=== PATIENT | male | born 1950 | race Caucasian/White ===

== ENCOUNTER 2016-11-18 14:03 | Inpatient (IN) | payer MEDICARE, BC ==
[~2016-11-18] VITALS: Ht 172.7 cm; Wt 84.0 kg
--- NOTE | 2016-11-18 14:07 | ERA ---
ER Documentation Chief Complaint Date/Time DATE: 11/18/16 TIME: 14:07 Chief Complaint Chest pain HPI The patient is a 66-year-old male, presenting to the ER because of acute left- sided chest pain after he had an angiogram of the right lower extremity in the doctor's office Dr. Trinh. The chest pain is 4/10, somewhat relief with aspirin 150 mg and 2 nitroglycerin sublingual administered by the doctors in the office. He was treated with additional 2 nitroglycerin spray. He denies similar symptoms previously, denies chest pain with exertion/vomiting/ diaphoresis dyspnea, abdominal pain, vomiting, dysuria, diarrhea. He did have dialysis today, Accu-Chek was 280 in the doctor's office. Past medical history: Chronic kidney disease, hemodialysis Friday and Friday, diabetes mellitus, hypertension, CAD Past surgical history: CABG 2011, right upper extremity AV fistula ROS All systems reviewed and are negative except as per history of present illness. Medications Home Meds Reported Medications Rosuvastatin Calcium* (Crestor*) 40 Mg Tablet, 40 MG PO QHS, #30 TAB 11/18/16 Isosorbide Mononitrate* (Isosorbide Mononitrate*) 60 Mg Tab.er.24h, 60 MG PO DAILY, TAB 11/18/16 Pregabalin* (Lyrica*) 25 Mg Capsule, 25 MG PO DAILY, CAP 11/18/16 Valsartan* (Diovan*) 160 Mg Tablet, 160 MG PO DAILY, TAB 11/18/16 Insulin Aspart* (Novolog Insulin Pen*) 100 Unit/Ml Soln, 0 SC .SLIDING SCALE AC , EA 11/18/16 Insulin Glargine,Hum.rec.anlog (Toujeo Solostar) 300 Unit/1 Ml Insuln.pen, 85 UNIT SQ QPM 11/18/16 Furosemide* (Furosemide*) 40 Mg Tablet, 40 MG PO BID, TAB 11/18/16 Mometasone Furoate* (Asmanex*) 110 Mcg/Inh - 7 Act Aer.pow.ba, 1 PUFF INHALATION QHS, #1 INHALER 11/18/16 Ticagrelor* (Brilinta*) 90 Mg Tablet, 90 MG PO Q12, TAB 11/18/16 Allergies Allergies: Coded Allergies: No Known Allergy (Unverified , 11/18/16) Physical Exam Vitals Vital Signs Date Time Temp Pulse Resp B/P Pulse Ox O2 Delivery O2 Flow Rate FiO2 11/18/16 16:09 98.0 86 18 139/59 98 Nasal Cannula 2.0 11/18/16 14:31 Nasal Cannula 2 11/18/16 14:11 97.8 86 20 129/47 98 Physical Exam Const: No acute distress. Head: Atraumatic. Eyes: Normal Conjunctiva. ENT: Normal External Ears, Nose and Mouth. Neck: Full range of motion. No meningismus. Resp: Clear to auscultation bilaterally. Cardio: Regular rate and rhythm. Abd: Soft, non distended, normal bowel sounds, non tender. Skin: No petechiae or rashes. Back: No midline or flank tenderness. Ext: Chronic bilateral lower extremity edema, no calf tenderness Neur: Awake and alert. No focal deficit Psych: Normal Mood and Affect. Result Diagram: 11/18/16 1435 11/18/16 1435 Results 24 hrs Laboratory Tests Test 11/18/16 14:22 11/18/16 14:35 Bedside Glucose 265mg/dL White Blood Count 13.210^3/ul Red Blood Count 3.9110^6/ul Hemoglobin 11.9g/dl Hematocrit 36.1% Mean Corpuscular Volume 92.3fl Mean Corpuscular Hemoglobin 30.4pg Mean Corpuscular Hemoglobin Concent 33.0g/dl Red Cell Distribution Width 13.9% Platelet Count 37246^3/UL Mean Platelet Volume 10.6fl Neutrophils % 71.9% Lymphocytes % 17.0% Monocytes % 7.5% Eosinophils % 2.7% Basophils % 0.6% Nucleated Red Blood Cells % 0.0/100WBC Neutrophils # 9.510^3/ul Lymphocytes # 2.310^3/ul Monocytes # 1.010^3/ul Eosinophils # 0.410^3/ul Basophils # 0.110^3/ul Nucleated Red Blood Cells # 0.010^3/ul Sodium Level 141mmol/L Potassium Level 4.1mmol/L Chloride Level 96mmol/L Carbon Dioxide Level 29mmol/L Anion Gap 20 Blood Urea Nitrogen 43mg/dl Creatinine 9.08mg/dl Glucose Level 282mg/dl Calcium Level 9.0mg/dl Phosphorus Level 4.6mg/dl Magnesium Level 1.9mg/dl Troponin I 0.305ng/ml Procedures/[place] [id number] Radiology Main Line: [phone] DIAGNOSTIC IMAGING REPORT Patient: MIKAELA HELLER : 1950 Age: 66 Sex: M MR #: [id number] DOS: 11/18/16 1418 Ordering MD: GABBY CLARKE MD Location: E/R Room/Bed: PROCEDURE: XR Chest. CLINICAL INDICATION: Chest pain. TECHNIQUE: Single frontal view. COMPARISON: None. FINDINGS: The lungs are clear. The heart is enlarged. There are sternal wires. There is no pleural effusion. There is no pneumothorax. IMPRESSION: 1. Cardiomegaly. 2. Previous median sternotomy. 3. Otherwise unremarkable study. RPTAT: QQ .Khoa Ballard MD, MD Date Time Electronically viewed and signed by .Khoa Ballard MD, MD on 11/18/2016 15:02 .R/ CC: GABBY CLARKE MD EKG: Read by emergency physician Rate/Rhythm: Normal Sinus Rhythm 88 beats/min QRS, ST, T-waves: No ST elevation, no T inversion, Anterior Q waves Impression: Abnormal EKG MEDICAL MAKING DECISION: The patient is a 66-year-old male, presenting with acute non-STEMI. His pain is currently tolerable and did not require additional treatment at this time.Anticoagulation will be ordered by Dr. Alston The differential diagnoses considered include but are not limited to acute coronary syndrome, acute myocardial infarction, pericarditis, pulmonary embolism , aortic dissection, pneumonia, pleural effusion, pneumothorax, GERD, chest wall pain. Critical Care: Time: 35 minutes excluding all billable procedures. Treatments/Evaluations: Close monitoring and treatment of unstable vital signs, cardiorespiratory, and neurologic status, while maintaining tight balance of fluid, respiratory, and cardiac interventions. Departure Diagnosis: Primary Impression: Non-STEMI (non-ST elevated myocardial infarction) Additional Impression: Anemia Condition: Stable Comments I discussed the findings with the patient. I discussed the patient with the on- call hospitalist Dr. Alston at [facility]. Who was made aware of the lab, the treatment, the patient condition. The patient is admitted to telemetry GABBY CLARKE MD Nov 18, 2016 14:07 GABBY CLARKE MD Nov 18, 2016 14:07
[2016-11-18 14:11] VITALS: Ht 172.7 cm; Wt 84.0 kg
--- NOTE | 2016-11-18 15:02 | RADRPT ---
PROCEDURE: XR Chest. CLINICAL INDICATION: Chest pain. TECHNIQUE: Single frontal view. COMPARISON: None. FINDINGS: The lungs are clear. The heart is enlarged. There are sternal wires. There is no pleural effusion. There is no pneumothorax. IMPRESSION: 1. Cardiomegaly. 2. Previous median sternotomy. 3. Otherwise unremarkable study. RPTAT: QQ .Khoa Ballard MD, MD Date Time Electronically viewed and signed by .hKoa Ballard MD, MD on 11/18/2016 15:02 .R/
[2016-11-18 15:04] LABS: BASOPHIL # 0.1 10^3/ul (0.0-0.1); BASOPHILS % 0.6 % (0.0-2.0); EOSINOPHILS # 0.4 10^3/ul (0.0-0.5); EOSINOPHILS % 2.7 % (0.0-7.0); HEMATOCRIT 36.1 % (42.0-52.0); HEMOGLOBIN 11.9 g/dl (14.0-18.0); LYMPHOCYTES # 2.3 10^3/ul (0.8-2.9); MEAN CORPUSCULAR HEMOGLOBIN 30.4 pg (29.0-33.0); MEAN CORPUSCULAR VOLUME 92.3 fl (82.0-101.0); MEAN PLATELET VOLUME 10.6 fl (7.4-10.4); MONOCYTES % 7.5 % (0.0-11.0); NEUTROPHIL # 9.5 10^3/ul (1.6-7.5); NEUTROPHILS % 71.9 % (39.0-77.0); PLATELET COUNT 178 10^3/UL (140-415); RED BLOOD COUNT 3.91 10^6/ul (4.70-6.10); RED CELL DISTRIBUTION WIDTH 13.9 % (11.5-14.5); WHITE BLOOD COUNT 13.2 10^3/ul (4.8-10.8)
[2016-11-18 15:15] LABS: CREATININE 9.08 mg/dl (0.61-1.24); MAGNESIUM 1.9 mg/dl (1.7-2.5); PHOSPHORUS 4.6 mg/dl (2.5-4.9); POTASSIUM 4.1 mmol/L (3.5-5.1)
[2016-11-18] MEDS ORDERED: FURO40TA4 PO (15:17)
[2016-11-18] MEDS ORDERED: TICA90TA PO (15:17)
[2016-11-18] MEDS ORDERED: MOME0.132 INHALATION (15:17)
[2016-11-18] MEDS ORDERED: NOVO3I SC (15:18)
[2016-11-18] MEDS ORDERED: INSU300I SQ (15:18)
[2016-11-18] MEDS ORDERED: LYRI25 PO (15:19)
[2016-11-18] MEDS ORDERED: ISOS60TA PO (15:19)
[2016-11-18] MEDS ORDERED: VALS160T20 PO (15:19)
[2016-11-18] MEDS ORDERED: ROSU40TA35 PO (15:20)
[2016-11-18 15:35] LABS: TROPONIN-I 0.305 ng/ml (0.00-0.12)
[2016-11-18 18:23] VITALS: TEMP 98.2
[2016-11-18] MEDS ORDERED: morphine 2 MG INJ IV PRN (19:30)
[2016-11-18] MEDS ORDERED: ALBUTEROL/IPRATROPIUM (NEB) 3 ML AMP HHN PRN (19:30)
[2016-11-18] MEDS ORDERED: HEPARIN 1000 UNITS/ML 10 ML INJ IV PRN (19:30)
[2016-11-18] MEDS ORDERED: NITROGLYCERIN 2% 1 GM OINT PKT TD PRN (19:30)
[2016-11-18] MEDS: NEBIVOLOL 5 MG TAB PO SCH (19:30)
[2016-11-18] MEDS ORDERED: HEPARIN 1000 UNITS/ML 10 ML INJ IV ONE (19:30)
[2016-11-18] MEDS ORDERED: ONDANSETRON 4 MG INJ IV PRN (19:30)
[2016-11-18] MEDS ORDERED: NACL 0.9% 3 ML SYG IV SCH (19:30)
--- NOTE | 2016-11-18 19:34 | HP ---
Date/Time of Note Date/Time of Note DATE: 11/18/16 TIME: 19:28 Assessment/Plan VTE Prophylaxis VTE Prophylaxis Intervention: heparin, SCD's Lines/Catheters IV [facility]from [facility] [place] Assessment/Plan Chief Complaint/Hosp Course Patient is a 66-year-old male with a past medical history of coronary artery disease who presents for chest pain. Chest pain, non-ST elevation MN Non-ST elevation MN End-stage renal disease Elevated troponins Diabetes mellitus Electrolyte derangement, secondary to ESRD Elevated white count, very mild Anemia, likely secondary to CKD Plan -Cardiology consulted, plan for cath possibly tomorrow, n.p.o. after midnight, on heparin drip -Restart meds as appropriate -Nephrology consulted for hemodialysis -As needed medication for pain, morphine and nitro -Monitor in the ICU per emergency physician -We will restart other home meds as patient becomes more stable -Troponins still trending Problems: HPI/ROS Admit Date/Time Admit Date/Time Hx of Present Illness Patient is a 66-year-old male with past medical history of coronary artery disease and end-stage renal disease on hemodialysis who presents to [facility] for chest pain during routine angiogram procedure at a vascular surgeon's office. Patient complains of 1 day onset of left-sided chest pain and states that it is still present here in the ED but has subsided somewhat. Patient follows up with a senior information systems architect at [facility] and with the hourly shift on a regular basis and takes all his medications except for today. Patient also received dialysis this morning. Patient denies any nausea vomiting, headache or loss of vision or shortness of breath. Patient does state mild chest pain still. PMH: End-stage renal disease on hemodialysis, coronary artery disease status post CABG in 2012, diabetes mellitus, hypertension, peripheral arterial disease question PSH: CABG in 2012 Meds: Brilinta, isosorbide dinitrate, Crestor, valsartan, Lyrica, Lasix, insulin PMH/Family/Social Social History Smoking Status: Never smoker Exam/Review of Systems Vital Signs Vitals Vital Signs Date Time Temp Pulse Resp B/P Pulse Ox O2 Delivery O2 Flow Rate FiO2 11/18/16 18:23 98.2 86 18 131/53 98 Nasal Cannula 2.0 Exam Exam Physical exam General: Patient is laying in bed and answers questions appropriately Mentation: Patient is alert and oriented 4, Head: Normocephalic atraumatic Eyes: EOMI, pupils reactive to light Neck: Supple, nontender, midline Respiratory: Clear to auscultation bilaterally Cardiovascular: regular rate, no obvious murmurs Gastrointestinal: non-tender to palpation, bowel sounds heard. large Neurological: Moves all extremities spontaneously Skin: No new skin lesions Labs Result Diagram: 11/18/16 1435 11/18/16 1435 Medications Medications Current Medications Ondansetron HCl (Zofran Inj) 4 mg Q6H PRN IV NAUSEA AND/OR VOMITING; Start at 19:30; Status UNV Morphine Sulfate (morphine) 2 mg Q4H PRN IV SEVERE PAIN LEVEL 7-10; Start 11/18 at 19:30; Status UNV Pantoprazole (Protonix Iv) 40 mg DAILY@06 IV ; Start 11/19/16 at 06:00; Status UNV Miscellaneous Medication (Bystolic) 5 mg DAILY PO ; Start 11/18/16 at 19:30; Status UNV Isosorbide Dinitrate (Isordil) 20 mg TID PO ; Start 11/18/16 at 21:00; Status UNV Ticagrelor (Brilinta) 90 mg BID PO ; Start 11/18/16 at 21:00; Status UNV Atorvastatin Calcium (Lipitor) 80 mg HS PO ; Start 11/18/16 at 21:00; Status UNV Nitroglycerin (Nitroglycerin 2% Oint) 1 inch Q6 PRN TD chest pain; Start at 19:30; Status UNV Miscellaneous Information (* Miscellaneous Pharmacy Order) Discontinue current oral sulfonylur... ONCE ONCE XX ; Start 11/18/16 at 19:30; Stop 11/18/16 at 19: 31; Status UNV Diagnostic Test (Pha) (Accu-Chek) 1 XX ; Start 11/19/16 at 02:00; Status UNV Miscellaneous Information (* Miscellaneous Pharmacy Order) HYPOGLYCEMIA PROTOCOL w... ONCE ONCE XX ; Start 11/18/16 at 19:30; Stop 11/18/16 at 19:31; Status UNV Miscellaneous Information (* Miscellaneous Pharmacy Order) Discontinue all previ... ONCE ONCE XX ; Start 11/18/16 at 19:30; Stop 11/18/16 at 19:31; Status UNV Insulin Glargine (Lantus) 85 unit DAILY@20 SC ; Start 11/18/16 at 20:00; Status UNV Miscellaneous Information (* Miscellaneous Pharmacy Order) DC previous hepa... ONCE ONCE XX ; Start 11/18/16 at 19:30; Stop 11/18/16 at 19:31; Status UNV Heparin Sodium (Porcine) (Heparin (1000 Units/ml)) 4,000 unit ONCE ONCE IV ; Start 11/18/16 at 19:30; Stop 11/18/16 at 19:31; Status UNV ANALY VALDIVIA Nov 18, 2016 19:34
[2016-11-18 19:48] LABS: INR 1.03; PROTIME 13.5 Sec (12.2-14.2); PT RATIO 1.1
[2016-11-18] MEDS ORDERED: GLUCAGON 1 MG INJ IM PRN (20:00)
[2016-11-18] MEDS ORDERED: GLUCOSE GEL 15 GRAM TUBE BUCCAL PRN (20:00)
[2016-11-18] MEDS ORDERED: GLUCOSE GEL 15 GRAM TUBE PO PRN ×2 (20:00)
[2016-11-18] MEDS ORDERED: DEXTROSE 50% 50 ML SYRINGE IV PRN ×2 (20:00)
[2016-11-18] MEDS: HEPARIN 25000 UNITS/250 ML 250 ML IV SCH (20:28)
[2016-11-18] MEDS: INSULIN ASPART [NOVOLOG] 3 ML PEN SC SCH (20:50)
[2016-11-18] MEDS: INSULIN GLARGINE [LANtus] 3 ML PEN SC SCH (20:53)
[2016-11-18] MEDS: ISOSORBIDE DINITRATE 20 MG TAB PO SCH (21:00)
[2016-11-18] MEDS ORDERED: ATORVASTATIN 80 MG TAB PO SCH (21:00)
[2016-11-18 21:33] LABS: BASOPHIL # 0.1 10^3/ul (0.0-0.1); BASOPHILS % 0.5 % (0.0-2.0); EOSINOPHILS # 0.4 10^3/ul (0.0-0.5); EOSINOPHILS % 3.1 % (0.0-7.0); HEMATOCRIT 32.3 % (42.0-52.0); HEMOGLOBIN 10.6 g/dl (14.0-18.0); LYMPHOCYTES # 2.1 10^3/ul (0.8-2.9); LYMPHOCYTES % 18.2 % (15.0-51.0); MEAN CORPUSCULAR HEMOGLOBIN 30.2 pg (29.0-33.0); MEAN CORPUSCULAR HGB CONC 32.8 g/dl (32.0-37.0); MONOCYTE # 1.1 10^3/ul (0.3-0.9); MONOCYTES % 9.6 % (0.0-11.0); NEUTROPHIL # 7.8 10^3/ul (1.6-7.5); NEUTROPHILS % 68.2 % (39.0-77.0); PLATELET COUNT 119 10^3/UL (140-415); RED BLOOD COUNT 3.51 10^6/ul (4.70-6.10); WHITE BLOOD COUNT 11.4 10^3/ul (4.8-10.8)
[2016-11-18] MEDS: TICAGRELOR 90 MG TABLET PO SCH (22:00)
[2016-11-18 22:06] LABS: CK-MB 18.8 ng/ml (0.0-2.4); TROPONIN-I 2.21 ng/ml (0.00-0.12)
[2016-11-18 23:39] VITALS: PULSE 89
[2016-11-19] VITALS (24 sets, daily range): BP systolic 114–185; BP diastolic 48–95; PULSE 71–84; RESP 7–23
[2016-11-19] MEDS: ACCU-CHEK XX SCH (01:54)
[2016-11-19] MEDS: HEPARIN 25000 UNITS/250 ML 250 ML IV SCH (06:42)
[2016-11-19] MEDS: INSULIN ASPART [NOVOLOG] 3 ML PEN SC SCH ×4 (08:00→21:11)
--- NOTE | 2016-11-19 08:32 | CONS ---
Date/Time of Note Date/Time of Note DATE: 11/19/16 TIME: 08:24 Assessment/Plan Assessment/Plan Chief Complaint/Hosp Course 1. NSTEMI 2. ESRD on HD 3. 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 Dyslipidemia 6. DM 7. CAD 8. HX CABG RECOMMENDATIONS: Cont ASA 81 ONLY pt refused heparin drip. will cont brilinta for now since pt is already on it at home and has had no complications with it and tolerating well. betablocker. NTG DM control with insulin as per IM [facility]/ kaleb ibarra possible PCI today. Risks benefits and alternatives of the procedure discussed with the patient in detail. Risks including but not limited to risk of infection vascular complication bleeding complications DE stroke arrhythmia or renal failure,, etc. discussed with the patient in detail. Patient has consented to the procedure. We will schedule the patient as soon as possible for today. Thank you for this referral. I will continue to follow along with you. CARMELINA MACK MD [facility] Problems: Consultation Date/Type/Reason Admit Date/Time Date of Consultation: Nov 19, 2016 Type of Consultation: cardiology Reason for Consultation DE Hx of Present Illness CC: CHEST PAIN HPI: Dear Dr Alston. thank you for this consultation This is a very pleasant 66-year-old gentleman with history of coronary artery disease who underwent diagnostic angiography for his severe peripheral vascular disease by Dr. Lara yesterday. Patient stated after the diagnostic angiogram was done he has severe anterior chest pain. He told the doctor and was brought into the emergency room. The pain continue until late night. It is anterior severe pressure-like. He has not had pain like this for a long time. Patient stated that he has been followed up at [facility] system and has had a stress test done recently which was told it was normal. His troponin has been rising. He was started on heparin drip however he has refused overnight. His pain has resolved at this point. 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 Meds: Brilinta ( which was started a month ago by his take away man b/c of his fingers turning blue which has helped him and he denies any bleeding with it) isosorbide dinitrate, Crestor, valsartan, Lyrica, Lasix, insulin, asa 81 and bystolic. allergy NKDA Social: denies T/E/D. FAMILY HX: NO early CAD ROS: as above only. he denies all others. Social History Smoking Status: Never smoker Exam/Review of Systems Vital Signs Vitals Vital Signs Date Time Temp Pulse Resp B/P Pulse Ox O2 Delivery O2 Flow Rate FiO2 11/19/16 08:02 97.6 80 18 140/60 96 11/18/16 22:30 Nasal Cannula 2.0 Intake and Output 11/18/16 11/18/16 11/19/16 15:00 23:00 07:00 Intake Total 40 ml Balance 40 ml Exam General: no acute distress HEENT: NC/AT. pupils are equal. round. NECK: NO JVD. no stridor. CV: RRR. systolic murmur; no gallop or rubs. PULM: no wheezing or rhonchi. GI: SOFT, NT, ND, no rebound or guarding Extremity: trace B/L LE edema. no clubbing. neuro: awake and alert, OX3. Psych: calm and pleasant rectal: deferred : normal male vascular: poor pulses distally. ECG NSR. ant infarct age undetermined. CXR: no acute disease. Results Result Diagram: 11/18/167 11/18/16 1435 Results 24 hrs Laboratory Tests Test 11/18/16 14:22 11/18/16 14:35 11/18/16 15:00 11/18/16 20:38 Bedside Glucose 265 H 209 White Blood Count 13.2 H Red Blood Count 3.91 L Hemoglobin 11.9 L Hematocrit 36.1 L Mean Corpuscular Volume 92.3 Mean Corpuscular Hemoglobin 30.4 Mean Corpuscular Hemoglobin Concent 33.0 Red Cell Distribution Width 13.9 Platelet Count 178 Mean Platelet Volume 10.6 H Neutrophils % 71.9 Lymphocytes % 17.0 Monocytes % 7.5 Eosinophils % 2.7 Basophils % 0.6 Nucleated Red Blood Cells % 0.0 Neutrophils # 9.5 H Lymphocytes # 2.3 Monocytes # 1.0 H Eosinophils # 0.4 Basophils # 0.1 Nucleated Red Blood Cells # 0.0 Sodium Level 141 Potassium Level 4.1 Chloride Level 96 L Carbon Dioxide Level 29 Anion Gap 20 H Blood Urea Nitrogen 43 H Creatinine 9.08 H Glucose Level 282 H Calcium Level 9.0 Phosphorus Level 4.6 Magnesium Level 1.9 Troponin I 0.305 *H Prothrombin Time 13.5 Prothrombin Time Ratio 1.1 INR International Normalized Ratio 1.03 Activated Partial Thromboplast Time 42.0 H Test 11/18/16 21:17 White Blood Count 11.4 H Red Blood Count 3.51 L Hemoglobin 10.6 L Hematocrit 32.3 L Mean Corpuscular Volume 92.0 Mean Corpuscular Hemoglobin 30.2 Mean Corpuscular Hemoglobin Concent 32.8 Red Cell Distribution Width 14.0 Platelet Count 119 #L Mean Platelet Volume 11.0 H Neutrophils % 68.2 Lymphocytes % 18.2 Monocytes % 9.6 Eosinophils % 3.1 Basophils % 0.5 Nucleated Red Blood Cells % 0.0 Neutrophils # 7.8 H Lymphocytes # 2.1 Monocytes # 1.1 H Eosinophils # 0.4 Basophils # 0.1 Nucleated Red Blood Cells # 0.0 Creatine Kinase 312 H Creatine Kinase Index 6.0 Creatinine Kinase MB (Mass) 18.80 H Troponin I 2.210 *H Medications Medications Current Medications Ondansetron HCl (Zofran Inj) 4 mg Q6H PRN IV NAUSEA AND/OR VOMITING; Start at 19:30 Morphine Sulfate (morphine) 2 mg Q4H PRN IV SEVERE PAIN LEVEL 7-10; Start 11/18 at 19:30 Famotidine (Pepcid Iv) 10 mg DAILY IV ; Start 11/19/16 at 09:00 Miscellaneous Medication (Bystolic) 5 mg DAILY PO Last administered on 19:30; Admin Dose 5 MG; Start 11/18/16 at 19:30 Isosorbide Dinitrate (Isordil) 20 mg TID PO ; Start 11/18/16 at 21:00 Ticagrelor (Brilinta) 90 mg BID PO Last administered on 11/18/16 22:00; Admin Dose 90 MG; Start 11/18/16 at 21:00 Atorvastatin Calcium (Lipitor) 80 mg HS PO ; Start 11/18/16 at 21:00 Nitroglycerin (Nitroglycerin 2% Oint) 1 inch Q6H PRN TD chest pain; Start 11/18 at 19:30 Diagnostic Test (Pha) (Accu-Chek) 1 ea 02 XX ; Start 11/19/16 at 02:00 Insulin Glargine (Lantus) 68 unit DAILY@20 SC Last administered on 11/18/16t 20 :53; Admin Dose 68 UNIT; Start 11/18/16 at 20:00 Miscellaneous Information 1 ea NOTE XX ; Start 11/18/16 at 20:00 Glucose (Glutose) 15 gm Q15M PRN PO DECREASED GLUCOSE; Start 11/18/16 at 20:00 Glucose (Glutose) 22.5 gm Q15M PRN PO DECREASED GLUCOSE; Start 11/18/16 at 20: 00 Dextrose (D50w Syringe) 25 ml Q15M PRN IV DECREASED GLUCOSE; Start 11/18/16 at 20:00 Dextrose (D50w Syringe) 50 ml Q15M PRN IV DECREASED GLUCOSE; Start 11/18/16 at 20:00 Glucagon (Glucagen) 1 mg Q15M PRN IM DECREASED GLUCOSE; Start 11/18/16 at 20:00 Glucose (Glutose) 15 gm Q15M PRN BUCCAL DECREASED GLUCOSE; Start 11/18/16 at 20 :00 Aspirin (Aspirin) 81 mg DAILY PO ; Start 11/19/16 at 09:00 Influenza Virus Vaccine (Fluzone) 0.5 ml ONCE ONCE IM* ; Start 11/21/16 at 09:00 ; Stop 11/21/16 at 09:01 CARMELINA MACK MD Nov 19, 2016 08:32
[2016-11-19] MEDS: ASPIRIN 81 MG TAB PO SCH (08:43)
[2016-11-19] MEDS ORDERED: ENOXAPARIN 100 MG/ML SYG SC SCH (09:00)
--- NOTE | 2016-11-19 09:01 | RADRPT ---
Echocardiogram Report Patient Name: MIKAELA HELLER Gender: Male Date: 1950 Study Date: 19-Nov-2016 Kit Planner: Kiah Calderon [facility] Location: [id number] Ref. Physician: ANALY VALDIVIA Quality: Good Procedures: Transthoracic echocardiogram with complete 2D, M-Mode, and doppler examination. Indications: NSTEMI. 2D/M Mode Doppler Measurement Value Normal Ranges Measurement Value Normal Ranges LVIDd 2D 4.6 3.5 - 5.6 cm AV Peak Bridger 1.7 m/sec LVIDs 2D 2.7 2.1 - 4.1 cm AV Peak PG 11.0 mmHg FS 2D 40.6 % LVOT Peak Bridger 1.0 m/sec LVPWd 2D 1.0 0.6 - 1.1 cm LVOT Peak PG 4.0 mmHg IVSd 2D 1.0 0.6 - 1.1 cm MV E Peak Bridger 1.1 m/sec IVS/LVPW 2D 1.0 MV A Peak Bridger 0.9 m/sec AoR Diam 2D 2.6 2.0 - 3.7 cm MV E/A 1.3 LA/Ao 2D 1 0 - 1 MV Decel Time 190 msec EDV 2D 96.1 cm3 MV E/A 1.3 ESV 2D 20.1 cm3 TR Peak Bridger 3.2 m/sec LA Dimen 2D 3.8 2.3 - 4.0 cm TR Peak PG 40.0 mmHg RVSP 43.0 mmHg Findings Left Ventricle: Normal left ventricular systolic function. Normal left ventricular cavity size. Normal left ventricular wall thickness. Ejection fraction is visually estimated at 60 %. Abnormal Diastolic Function. Right Ventricle: Normal right ventricular size. Normal right ventricular systolic function. Left Atrium: The left atrium is normal in size. Right Atrium: The right atrium is normal in size. Mitral Valve: Mitral valve leaflets appear mildly thickened. Mild mitral annular calcification. Mild mitral valve regurgitation. Aortic Valve: No significant aortic stenosis or insufficiency. Aortic cusps appear mildly calcified. Tricuspid Valve: Normal appearance of the tricuspid valve. Estimated peak PA systolic pressure 43 mmHg. There is mild tricuspid regurgitation. Pulmonic Valve: Pulmonic valve not well visualized. Pericardium: Normal pericardium with no significant pericardial effusion. Aorta: Normal aortic root. IVC: Normal size and normal respiratory collapse consistent with normal right atrial pressure. Conclusions 1.Normal left ventricular systolic function. Normal left ventricular cavity size. Normal left ventricular wall thickness. Ejection fraction is visually estimated at 60 %. Abnormal Diastolic Function. 2.Mitral valve leaflets appear mildly thickened. Mild mitral annular calcification. Mild mitral valve regurgitation. 3.No significant aortic stenosis or insufficiency. Aortic cusps appear mildly calcified. 4.Normal appearance of the tricuspid valve. Estimated peak PA systolic pressure 43 mmHg. There is mild tricuspid regurgitation. Electronically Signed By: Chris Barnhart 19-Nov-2016 09:01:00 -0700 Patient Name: MIKAELA HELLER Study Date: 19-Nov-2016 [id number]
[2016-11-19 09:55] LABS: ALBUMIN 3.4 g/dl (3.3-4.9); ALBUMIN/GLOBULIN RATIO 0.94; CALCIUM 8.8 mg/dl (8.4-10.2); CHOL/HDL RATIO 4.7 RATIO; CREATININE 11.08 mg/dl (0.61-1.24); POTASSIUM 4.5 mmol/L (3.5-5.1)
[2016-11-19 10:00] LABS: CK-MB 16.5 ng/ml (0.0-2.4); TROPONIN-I 10.5 ng/ml (0.00-0.12)
[2016-11-19 10:11] LABS: T3 UPTAKE 42.2 % (23.5-40.5)
[2016-11-19 10:24] LABS: THYROID STIMULATING HORMONE 5.18 MIU/L (0.465-4.680)
--- NOTE | 2016-11-19 10:33 | CONS ---
Date/Time of Note Date/Time of Note DATE: 11/19/16 TIME: 10:33 Assessment/Plan Assessment/Plan Additional Assessment/Plan 66 yo male with 1. NSTEMI 2. ESRD on HD. MWF 3. Severe PAD 4 HTN, Chronic 5. Dyslipidemia 6. DM with Renal Complication, ESRD 7. CAD 8. HX CABG 9. RUE AVF Discussed with patient regarding HD today and contrast studies He will have total 2 studies yesterday and today However patient refused to have HD today after cath and stated he would rather have HD tomorrow in order to continue his regular schedule Pt is stable for acid/base and volume status. BP controlled this am. Electrolytes are ok. Discussed case with Hospitalist and Roller Inspector If patient is more agreeable later today, HD nurses have order to dialyze today and tomorrow. Addendum pet care associate made 3 attempts to cannulate AVF Unable to cannulate. Pt will not allow further Duplex US ordered AVF Discussed case with Cardio and Vascular Surgeon Dr Lara Will f/u study, try again in am. Consultation Date/Type/Reason Admit Date/Time Date of Consultation: Nov 19, 2016 Type of Consultation: Renal Reason for Consultation ESRD Referring Provider: ANALY VALDIVIA Hx of Present Illness 66-year-old male with past medical history of coronary artery disease and end- stage renal disease on hemodialysis every Friday, friday and friday who presented to [facility] for chest pain after angiogram procedure by Dr Lara, vascular surgeon. Patient follows up with a railway engineer at [facility] and with the agile coach in [place] Dr Tarango. Patient denies any nausea vomiting, headache or loss of vision or shortness of breath. Denies chest pain at time of my examination. Pt planned for labor service representative this am. Nephrology consulted for management of ESRD. Pt refused Heparin last and night and refused to have HD after cath today. He stated he would rather have dialysis during regular schedule tomorrow am. Constitutional: No requiring O2 ENT: no complaints Respiratory: no complaints Cardiovascular: chest pain (not at time of my history) Gastrointestinal: no complaints Genitourinary: no complaints Musculoskeletal: no complaints Skin: no complaints Neurologic: no complaints Psychological: no complaints Additional Comments MEDS: Brilinta, isosorbide dinitrate, Crestor, valsartan, Lyrica, Lasix, insulin Past Medical History End-stage renal disease on hemodialysis, coronary artery disease status post CABG in 2012, diabetes mellitus, hypertension, peripheral arterial disease Medical History: angina, coronary artery disease, diabetes, hypertension, renal disease Past Surgical History CABG in 2012 Past Surgical Hx: coronary bypass surgery Family History Significant Family History: no pertinent family hx Social History Alcohol Use: none Smoking Status: Never smoker Drug Use: none Exam/Review of Systems Vital Signs Vitals Vital Signs Date Time Temp Pulse Resp B/P Pulse Ox O2 Delivery O2 Flow Rate FiO2 11/19/16 08:31 75 11/19/16 08:02 97.6 18 140/60 96 11/18/16 22:30 Nasal Cannula 2.0 Intake and Output 11/18/16 11/18/16 11/19/16 15:00 23:00 07:00 Intake Total 40 ml Balance 40 ml Exam Constitutional: alert, oriented, No distress Head: atraumatic, normocephalic Eyes: EOMI ENMT: mucosa pink and moist Neck: No jvd Respiratory: clear to auscultation, No diminished breath sounds Cardiovascular: edema (trace), regular rate and rhythm Gastrointestinal: non-tender, soft Musculoskeletal: nl extremities to inspection Extremities: edema Neurological: ELEVATOR CONDUCTOR II-XII intact, nl mental status, nl speech, nl strength, No confused, No lethargic Skin: nl turgor, No diaphoresis Results Result Diagram: 11/18/16211611/19/16 0915 Results 24 hrs Laboratory Tests Test 11/18/16 14:22 11/18/16 14:35 11/18/16 15:00 11/18/16 20:38 Bedside Glucose 265 H 209 White Blood Count 13.2 H Red Blood Count 3.91 L Hemoglobin 11.9 L Hematocrit 36.1 L Mean Corpuscular Volume 92.3 Mean Corpuscular Hemoglobin 30.4 Mean Corpuscular Hemoglobin Concent 33.0 Red Cell Distribution Width 13.9 Platelet Count 178 Mean Platelet Volume 10.6 H Neutrophils % 71.9 Lymphocytes % 17.0 Monocytes % 7.5 Eosinophils % 2.7 Basophils % 0.6 Nucleated Red Blood Cells % 0.0 Neutrophils # 9.5 H Lymphocytes # 2.3 Monocytes # 1.0 H Eosinophils # 0.4 Basophils # 0.1 Nucleated Red Blood Cells # 0.0 Sodium Level 141 Potassium Level 4.1 Chloride Level 96 L Carbon Dioxide Level 29 Anion Gap 20 H Blood Urea Nitrogen 43 H Creatinine 9.08 H Glucose Level 282 H Calcium Level 9.0 Phosphorus Level 4.6 Magnesium Level 1.9 Troponin I 0.305 *H Prothrombin Time 13.5 Prothrombin Time Ratio 1.1 INR International Normalized Ratio 1.03 Activated Partial Thromboplast Time 42.0 H Test 11/18/16 21:17 11/19/16 08:33 11/19/16 09:14 11/19/16 09:15 White Blood Count 11.4 H Red Blood Count 3.51 L Hemoglobin 10.6 L Hematocrit 32.3 L Mean Corpuscular Volume 92.0 Mean Corpuscular Hemoglobin 30.2 Mean Corpuscular Hemoglobin Concent 32.8 Red Cell Distribution Width 14.0 Platelet Count 119 #L Mean Platelet Volume 11.0 H Neutrophils % 68.2 Lymphocytes % 18.2 Monocytes % 9.6 Eosinophils % 3.1 Basophils % 0.5 Nucleated Red Blood Cells % 0.0 Neutrophils # 7.8 H Lymphocytes # 2.1 Monocytes # 1.1 H Eosinophils # 0.4 Basophils # 0.1 Nucleated Red Blood Cells # 0.0 Creatine Kinase 312 H 302 H Creatine Kinase Index 6.0 5.5 Creatinine Kinase MB (Mass) 18.80 H 16.50 H Troponin I 2.210 *H 10.500 *H Bedside Glucose 148 Activated Partial Thromboplast Time 33.0 Sodium Level 142 Potassium Level 4.5 Chloride Level 100 Carbon Dioxide Level 28 Anion Gap 19 H Blood Urea Nitrogen 60 H Creatinine 11.08 #H Glucose Level 135 # Calcium Level 8.8 Total Bilirubin 0.0 L Direct Bilirubin 0.00 Indirect Bilirubin 0.0 Aspartate Amino Transf (AST/SGOT) 38 Alanine Aminotransferase (ALT/SGPT) 49 Alkaline Phosphatase 127 H Total Protein 7.0 Albumin 3.4 Globulin 3.60 H Albumin/Globulin Ratio 0.94 Triglycerides Level 419 H Cholesterol Level 118 LDL Cholesterol, Calculated 9 HDL Cholesterol 25 L Cholesterol/HDL Ratio 4.7 Thyroid Stimulating Hormone (TSH) 5.180 H Free Thyroxine Index 1.86 Thyroxine (T4) 4.4 L Triiodothyronine (T3) Uptake 42.2 H Imaging Free Text/Dictation PROCEDURE: XR Chest. CLINICAL INDICATION: Chest pain. TECHNIQUE: Single frontal view. COMPARISON: None. FINDINGS: The lungs are clear. The heart is enlarged. There are sternal wires. There is no pleural effusion. There is no pneumothorax. IMPRESSION: 1. Cardiomegaly. 2. Previous median sternotomy. 3. Otherwise unremarkable study. RPTAT: QQ .Khoa Ballard MD, MD Date Time Electronically viewed and signed by .Khoa Ballard MD, MD on 11/18/2016 15:02 Medications Medications Current Medications Ondansetron HCl (Zofran Inj) 4 mg Q6H PRN IV NAUSEA AND/OR VOMITING; Start at 19:30 Morphine Sulfate (morphine) 2 mg Q4H PRN IV SEVERE PAIN LEVEL 7-10; Start 11/18 at 19:30 Famotidine (Pepcid Iv) 10 mg DAILY IV ; Start 11/19/16 at 09:00 Miscellaneous Medication (Bystolic) 5 mg DAILY PO Last administered on 19:30; Admin Dose 5 MG; Start 11/18/16 at 19:30 Isosorbide Dinitrate (Isordil) 20 mg TID PO ; Start 11/18/16 at 21:00 Ticagrelor (Brilinta) 90 mg BID PO Last administered on 11/18/16 22:00; Admin Dose 90 MG; Start 11/18/16 at 21:00 Atorvastatin Calcium (Lipitor) 80 mg HS PO ; Start 11/18/16 at 21:00 Nitroglycerin (Nitroglycerin 2% Oint) 1 inch Q6H PRN TD chest pain; Start 11/18 at 19:30 Diagnostic Test (Pha) (Accu-Chek) 1 ea 02 XX ; Start 11/19/16 at 02:00 Insulin Glargine (Lantus) 68 unit DAILY@20 SC Last administered on 11/18/16 20 :53; Admin Dose 68 UNIT; Start 11/18/16 at 20:00 Miscellaneous Information 1 ea NOTE XX ; Start 11/18/16 at 20:00 Glucose (Glutose) 15 gm Q15M PRN PO DECREASED GLUCOSE; Start 11/18/16 at 20:00 Glucose (Glutose) 22.5 gm Q15M PRN PO DECREASED GLUCOSE; Start 11/18/16 at 20: 00 Dextrose (D50w Syringe) 25 ml Q15M PRN IV DECREASED GLUCOSE; Start 11/18/16 at 20:00 Dextrose (D50w Syringe) 50 ml Q15M PRN IV DECREASED GLUCOSE; Start 11/18/16 at 20:00 Glucagon (Glucagen) 1 mg Q15M PRN IM DECREASED GLUCOSE; Start 11/18/16 at 20:00 Glucose (Glutose) 15 gm Q15M PRN BUCCAL DECREASED GLUCOSE; Start 11/18/16 at 20 :00 Aspirin (Aspirin) 81 mg DAILY PO Last administered on 11/19/16t 08:43; Admin Dose 81 MG; Start 11/19/16 at 09:00 Influenza Virus Vaccine (Fluzone) 0.5 ml ONCE ONCE IM* ; Start 11/21/16 at 09:00 ; Stop 11/21/16 at 09:01 Procedures Procedures ECHO Conclusions 1. Normal left ventricular systolic function. Normal left ventricular cavity size. Normal left ventricular wall thickness. Ejection fraction is visually estimated at 60 %. Abnormal Diastolic Function. 2. Mitral valve leaflets appear mildly thickened. Mild mitral annular calcification. Mild mitral valve regurgitation. 3. No significant aortic stenosis or insufficiency. Aortic cusps appear mildly calcified. 4. Normal appearance of the tricuspid valve. Estimated peak PA systolic pressure 43 mmHg. There is mild tricuspid regurgitation. Electronically Signed By: Chris Barnhart 19-Nov-2016 09:01:00 -0700 AMILCAR BOSS MD Nov 19, 2016 10:33
[2016-11-19] MEDS ORDERED: LIDOCAINE 1% (MDV) 20 ML INJ ONE (11:10)
[2016-11-19] MEDS ORDERED: IODIXANOL LOCM 100 ML BTL ONE ×2 (11:10→13:53)
[2016-11-19] MEDS ORDERED: MIDAZOLAM 1 MG/ML 2 ML INJ ONE (11:11)
[2016-11-19] MEDS ORDERED: FENTAnyl 50 MCG/ML VIAL ONE (11:11)
[2016-11-19] MEDS ORDERED: NITROGLYCERIN (IC) 100 MCG/ML INJ ONE (11:57)
[2016-11-19] MEDS ORDERED: IOHEXOL 350MG/ML 50 ML BTL ONE (11:58)
[2016-11-19] MEDS ORDERED: SOD CHLORIDE 0.9% 1,000 ML IV SCH (13:38)
[2016-11-19] MEDS ORDERED: TICAGRELOR 90 MG TABLET ONE (13:42)
[2016-11-19] MEDS ORDERED: OXYCODONE/ACETAMINOPHEN (5/325) TAB PO PRN (14:00)
[2016-11-19] MEDS ORDERED: morphine 2 MG INJ IV PRN (14:00)
[2016-11-19] MEDS ORDERED: ACETAMINOPHEN 325 MG TAB PO PRN (14:00)
--- NOTE | 2016-11-19 14:15 | OPR ---
Date/Time of Note Date/Time of Note DATE: 11/19/16 TIME: 13:53 Operative Report Procedure Date: Nov 19, 2016 Surgeon see signature line Operative\Procedure Findings Bus Matron: Carmelina Barnhart MD Indication: NSTEMI Procure performed: #1 left heart catheterization and selective right and left coronary angiogram. selective SVG & CLINTON angiography #2 Right femoral angiogram 3. complicated but Successful PTCA and stenting of left main coronary artery into proximal LAD using a 3.5x24 mm synergy JUSTINA. 4. Successful PTCA/ stent of mid LAD using a 2.5x20 mm synergy JUSTINA. 5. Successful PTCA of diagonal 1 6. Moderate sedation for more than 120 minutes Findings: 1. Left main: is long and diffusely diseased with 100% distal stenosis. 2. LAD: has 100 calcified stenosis ( ---> 0% post PCI). there is also 90% mid stenosis (---> 0% post PCI ). Diagoal 1 has 90% ostial / proximal and diffuse disease mid stenosis. after PTCA of the ostial lesion there was 20% residual stenosis left ( 3.0 balloon did not completely expand). mid LAD is 100% occluded after Diagonal 2 which appears to be old and chronic. CLINTON to mid/ distal LAD is patent. ( but there is no flow back to proximal LAD and Diagonal 1 &2). 3. Left circumflex artery: is nondominant is completely occluded ostially. 4. RCA: is dominant. it has 20% diffuse stenosis including at the proximal/ mid stent, 5. SVG ---> OM is patent and fills in 2 small OM. 6. CLINTON ---> LAD is patent. 7. no other graft was seen (only one marked was seen for the vein graft which corresponded to the SVG --> OM). 8. LV: 130/15, Aortic pressure 130/ 45 Procedure in detail: Written informed consent with obtained after risks benefits and alternatives discussed with the patient in detail. risks including but not limited to risk of infection vascular complications, bleeding complications, NC stroke arrhythmia renal failure at even were discussed with the patient in detail. Patient was brought into the cardiac scientific laboratory supervisor and placed in supine position. Right and left groin area was prepped and draped in regular sterile fashion and then he was in anesthetized using 1% lidocaine. Right femoral artery was cannulated and using modified seldinger technique a 6 Slovak sheath was placed in the right femoral artery. Right femoral angiogram was performed which showed diseased but patent R femoral artery. JL4 catheter was advanced and engaged into the left main coronary artery and angiographic view was obtained. The JR4 catheter was advanced and engaged right coronary artery angiographic view was obtained. JR4 was advanced to engage the left ventricle hemodynamics as recorded by pullback aortic pressure was measured. JR4 catheter was used and engaged into the SVG and CLINTON and angiographic views was obtained. At this time we decided to perform PCI of the left main and LAD. A JL 3.0 guiding head was advanced to engage the LM artery. Senior Project Controls Specialist wire was used and advanced across the lesion into the diagonal with difficulty. 2.5 balloon did not cross into the LAD and LM was predilatged. I used a 2x15 mm balloon which was placed across the lesion into the ostial diagonal and back into the LAD and predilated the vessel. Then used a 2.5 x12 mm balloon which was placed across the lesion into the ostial diagonal and back into the LAD and predilated the vessel. then a 3.0 noncompliant balloon was used the same area was dilated. it was noted that ostial diagonal 1 was heavily calcifed and balloon did not completely expand. then I used another BMW wire which was placed across into the 2nd diagonal. 2.5x12 followed but 3.0 noncompliant balloon was used and mid LAD ( between D1 & D2) were predilated. then I used a 2.5xs20 mm synergy JUSTINA stent which was placed across the mid LAD lesion ( Between diagonal 1 & 2) and deployed at 12 regine. then a 2.0 balloon was used and diagonal 1 was dilated at up to 14 atmosphere. Then, I used a 3.5x24 mm synergy JUSTINA which was placed into LAD ( just proximal to diagonal 1 lesion) into the proximal LM. IT was deployed at 14 atmosphere. Finally a 4.0 noncompliant balloon was used and postdilated the stent and up to 20 regine. I used a 2.5 noncompliant ballon and ostial diagonal was dilated again. it was decided not to stent this area not to block mid LAD into 2nd diag and also b/c of calcified lesion, balloon did not completely expand into the diagonal. Final angiographic view was obtained which showed ARISTIDES-3 flow no evidence of dissection and no significant residual stenosis at the site of the stents. Patient tolerated the procedure well with no complication. Patient was transferred to ICU in stable condition. Conclusions: Successful PTCA stenting of the left main and proximal and mid LAD from 100% stenosis to no significant residual stenosis using a 3.5X25 SYNERGY and 2.5x20 synergy JUSTINA stents Recommendations: Aggressive medical therapy. aspirin indefinitely dual antiplatlet therapy for at least a year. ICU care overnight. CARMELINA BARNHART MD Nov 19, 2016 14:15
[2016-11-19] MEDS: TICAGRELOR 90 MG TABLET PO SCH ×2 (14:56→21:13)
[2016-11-19] MEDS: FAMOTIDINE 20 MG INJ IV SCH (15:08)
[2016-11-19] MEDS: ISOSORBIDE DINITRATE 20 MG TAB PO SCH ×2 (15:33→22:10)
--- NOTE | 2016-11-19 15:34 | PN ---
Date/Time of Note Date/Time of Note DATE: 11/19/16 TIME: 15:32 Assessment/Plan VTE Prophylaxis VTE Prophylaxis Intervention: heparin Lines/Catheters IV [facility]from [facility] Urinary Cath still in place: No Assessment/Plan Chief Complaint/Hosp Course Patient is a 66-year-old male with a past medical history of coronary artery disease who presents for chest pain. Chest pain, non-ST elevation IA, resolved Non-ST elevation IA, left main/lad stenosis End-stage renal disease Elevated troponins Diabetes mellitus Electrolyte derangement, secondary to ESRD Elevated white count, very mild Anemia, likely secondary to CKD Plan -Cardiology consulted, cath was done today, 2 drug-eluting stents, continue home medications -Nephrology will start dialysis to remove contrast -As needed medication for pain -Monitor in the ICU overnight -If stable can go home tomorrow Problems: Subjective 24 Hr Interval Summary Free Text/Dictation s/p cardiac cath, feels a little cold, no chest pain. Exam/Review of Systems Vital Signs Vitals Vital Signs Date Time Temp Pulse Resp B/P Pulse Ox O2 Delivery O2 Flow Rate FiO2 11/19/16 15:00 Nasal Cannula 2.0 11/19/16 14:15 76 11/19/16 08:02 97.6 18 140/60 96 Intake and Output 11/18/16 11/18/16 11/19/16 15:00 23:00 07:00 Intake Total 40 ml Balance 40 ml Exam Physical exam General: Patient is laying in bed and answers questions appropriately Mentation: Patient is alert and oriented 4, Head: Normocephalic atraumatic Eyes: EOMI, pupils reactive to light Neck: Supple, nontender, midline Respiratory: Clear to auscultation bilaterally Cardiovascular: regular rate, no obvious murmurs Gastrointestinal: non-tender to palpation, bowel sounds heard. large Neurological: Moves all extremities spontaneously Results Result Diagram: 11/18/167 11/19/16 0915 Results 24 hrs Laboratory Tests Test 11/18/16 20:38 11/18/16 21:17 11/19/16 08:33 11/19/16 09:14 Bedside Glucose 209 148 White Blood Count 11.4 H Red Blood Count 3.51 L Hemoglobin 10.6 L Hematocrit 32.3 L Mean Corpuscular Volume 92.0 Mean Corpuscular Hemoglobin 30.2 Mean Corpuscular Hemoglobin Concent 32.8 Red Cell Distribution Width 14.0 Platelet Count 119 #L Mean Platelet Volume 11.0 H Neutrophils % 68.2 Lymphocytes % 18.2 Monocytes % 9.6 Eosinophils % 3.1 Basophils % 0.5 Nucleated Red Blood Cells % 0.0 Neutrophils # 7.8 H Lymphocytes # 2.1 Monocytes # 1.1 H Eosinophils # 0.4 Basophils # 0.1 Nucleated Red Blood Cells # 0.0 Creatine Kinase 312 H 302 H Creatine Kinase Index 6.0 5.5 Creatinine Kinase MB (Mass) 18.80 H 16.50 H Troponin I 2.210 *H 10.500 *H Test 11/19/16 09:15 11/19/16 14:34 Activated Partial Thromboplast Time 33.0 Sodium Level 142 Potassium Level 4.5 Chloride Level 100 Carbon Dioxide Level 28 Anion Gap 19 H Blood Urea Nitrogen 60 H Creatinine 11.08 #H Glucose Level 135 # Calcium Level 8.8 Total Bilirubin 0.0 L Direct Bilirubin 0.00 Indirect Bilirubin 0.0 Aspartate Amino Transf (AST/SGOT) 38 Alanine Aminotransferase (ALT/SGPT) 49 Alkaline Phosphatase 127 H Total Protein 7.0 Albumin 3.4 Globulin 3.60 H Albumin/Globulin Ratio 0.94 Triglycerides Level 419 H Cholesterol Level 118 LDL Cholesterol, Calculated 9 HDL Cholesterol 25 L Cholesterol/HDL Ratio 4.7 Thyroid Stimulating Hormone (TSH) 5.180 H Free Thyroxine Index 1.86 Thyroxine (T4) 4.4 L Triiodothyronine (T3) Uptake 42.2 H Bedside Glucose 91 Medications Medications Current Medications Ondansetron HCl (Zofran Inj) 4 mg Q6H PRN IV NAUSEA AND/OR VOMITING; Start at 19:30 Morphine Sulfate (morphine) 2 mg Q4H PRN IV SEVERE PAIN LEVEL 7-10; Start 11/18 at 19:30 Famotidine (Pepcid Iv) 10 mg DAILY IV Last administered on 11/19/16 15:08; Admin Dose 10 MG; Start 11/19/16 at 09:00 Miscellaneous Medication (Bystolic) 5 mg DAILY PO Last administered on 19:30; Admin Dose 5 MG; Start 11/18/16 at 19:30 Isosorbide Dinitrate (Isordil) 20 mg TID PO ; Start 11/18/16 at 21:00 Ticagrelor (Brilinta) 90 mg BID PO Last administered on 11/18/16 22:00; Admin Dose 90 MG; Start 11/18/16 at 21:00 Atorvastatin Calcium (Lipitor) 80 mg HS PO ; Start 11/18/16 at 21:00 Nitroglycerin (Nitroglycerin 2% Oint) 1 inch Q6H PRN TD chest pain; Start 11/18 at 19:30 Diagnostic Test (Pha) (Accu-Chek) 1 ea 02 XX ; Start 11/19/16 at 02:00 Insulin Glargine (Lantus) 68 unit DAILY@20 SC Last administered on 11/18/16 20 :53; Admin Dose 68 UNIT; Start 11/18/16 at 20:00 Miscellaneous Information 1 ea NOTE XX ; Start 11/18/16 at 20:00 Glucose (Glutose) 15 gm Q15M PRN PO DECREASED GLUCOSE; Start 11/18/16 at 20:00 Glucose (Glutose) 22.5 gm Q15M PRN PO DECREASED GLUCOSE; Start 11/18/16 at 20: 00 Dextrose (D50w Syringe) 25 ml Q15M PRN IV DECREASED GLUCOSE; Start 11/18/16 at 20:00 Dextrose (D50w Syringe) 50 ml Q15M PRN IV DECREASED GLUCOSE; Start 11/18/16 at 20:00 Glucagon (Glucagen) 1 mg Q15M PRN IM DECREASED GLUCOSE; Start 11/18/16 at 20:00 Glucose (Glutose) 15 gm Q15M PRN BUCCAL DECREASED GLUCOSE; Start 11/18/16 at 20 :00 Aspirin (Aspirin) 81 mg DAILY PO Last administered on 11/19/16 08:43; Admin Dose 81 MG; Start 11/19/16 at 09:00 Influenza Virus Vaccine (Fluzone) 0.5 ml ONCE ONCE IM* ; Start 11/21/16 at 09:00 ; Stop 11/21/16 at 09:01 Acetaminophen (Tylenol Tab) 650 mg Q4H PRN PO NON-CARDIAC PAIN LEVEL 1-3; Start 11/19/16 at 14:00 Oxycodone/ Acetaminophen (Percocet (5/ 325)) 1 tab Q4H PRN PO REPORTED NON- CARDIAC PAIN 4-7; Start 11/19/16 at 14:00 Morphine Sulfate 1 mg 1 mg Q1H PRN IV PAIN NOT RELIEVED BY OTHERS; Start at 14:00 Sodium Chloride (NS) 1,000 ml @ 50 mls/hr Q20H IV Last administered on t 15:08; Admin Dose 50 MLS/HR; Start 11/19/16 at 13:38; Stop 11/19/16 at 23: 37 Isosorbide Mononitrate (Imdur) 60 mg DAILY PO ; Start 11/20/16 at 09:00 Pregabalin (Lyrica) 25 mg DAILY PO ; Start 11/20/16 at 09:00 Rosuvastatin Calcium (Crestor) 40 mg QHS PO ; Start 11/19/16 at 21:00 Valsartan (Diovan) 160 mg DAILY PO ; Start 11/20/16 at 09:00 ANALY VALDIVIA Nov 19, 2016 15:34
[2016-11-19] MEDS: NEBIVOLOL 5 MG TAB PO SCH (15:47)
[2016-11-19] MEDS: FUROSEMIDE 40 MG TAB PO SCH (18:15)
[2016-11-19] MEDS: HEPARIN 5,000 UNIT/0.5 ML VIAL SC SCH ×2 (18:16→21:12)
[2016-11-19] MEDS ORDERED: ROSUVASTATIN CALCIUM 40 MG TABLET PO SCH (21:00)
[2016-11-19] MEDS ORDERED: TICAGRELOR 90 MG TABLET PO SCH (21:00)
[2016-11-19] MEDS: INSULIN GLARGINE [LANtus] 3 ML PEN SC SCH (21:10)
[2016-11-19] MEDS ORDERED: LABETALOL HCL 20MG INJ IV PRN (21:30)
--- NOTE | 2016-11-19 23:01 | RADRPT ---
PROCEDURE: US right upper extremity arterial system. CLINICAL INDICATION: Right upper extremity dialysis fistula malfunction. TECHNIQUE: Multiple longitudinal and transverse images of the right upper extremity arterial tree and dialysis fistula was obtained with cheng scale pulsed Doppler, and color Doppler imaging. COMPARISON: None available FINDINGS: There is a right upper extremity dialysis fistula extending from the brachial artery to the cephalic vein. There is stenosis in the mid cephalic vein with high velocity flow at this site. Peak systoli c velocity in the stenotic region is 431 cm/sec worse proximal to the stenosis, the peak systolic ve locity is 88 cm/sec. There is also a stenotic region of the arterial anastomoses with a peak systolic velocity of 312 cm/ sec whereas proximal to the anastomoses the peak systolic velocity is 115 cm/sec. IMPRESSION: 1. Patent right upper extremity dialysis fistula extending from the brachial artery to the cephalic vein. 2. Significant stenosis in the mid cephalic vein and within the arterial anastomosis. RPTAT: QQ .Khoa Ballard MD, MD Date Time Electronically viewed and signed by .Khoa Ballard MD, on 11/19/2016 23:01 .R/
[2016-11-20] VITALS (23 sets, daily range): BP systolic 102–135; BP diastolic 43–84; PULSE 77–101; RESP 16–19
[2016-11-20] MEDS: ACCU-CHEK XX SCH (02:00)
[2016-11-20 05:25] LABS: BASOPHIL # 0.1 10^3/ul (0.0-0.1); BASOPHILS % 0.6 % (0.0-2.0); EOSINOPHILS # 0.3 10^3/ul (0.0-0.5); EOSINOPHILS % 3.3 % (0.0-7.0); HEMOGLOBIN 9.4 g/dl (14.0-18.0); LYMPHOCYTES # 1.1 10^3/ul (0.8-2.9); LYMPHOCYTES % 10.2 % (15.0-51.0); MEAN CORPUSCULAR HEMOGLOBIN 30.1 pg (29.0-33.0); MEAN CORPUSCULAR HGB CONC 32.4 g/dl (32.0-37.0); MEAN CORPUSCULAR VOLUME 92.9 fl (82.0-101.0); MEAN PLATELET VOLUME 10.6 fl (7.4-10.4); MONOCYTES % 9.9 % (0.0-11.0); NEUTROPHIL # 7.9 10^3/ul (1.6-7.5); NEUTROPHILS % 75.6 % (39.0-77.0); PLATELET COUNT 140 10^3/UL (140-415); RED BLOOD COUNT 3.12 10^6/ul (4.70-6.10); RED CELL DISTRIBUTION WIDTH 14.1 % (11.5-14.5); WHITE BLOOD COUNT 10.4 10^3/ul (4.8-10.8)
[2016-11-20 05:42] LABS: CALCIUM 8.5 mg/dl (8.4-10.2); CREATININE 12.27 mg/dl (0.61-1.24); POTASSIUM 4.8 mmol/L (3.5-5.1)
[2016-11-20 05:56] LABS: CK-MB 9.44 ng/ml (0.0-2.4); TROPONIN-I 7.63 ng/ml (0.00-0.12)
[2016-11-20] MEDS: FUROSEMIDE 40 MG TAB PO SCH (06:48)
[2016-11-20] MEDS: HEPARIN 5,000 UNIT/0.5 ML VIAL SC SCH (06:49)
--- NOTE | 2016-11-20 07:59 | CONS ---
Date/Time of Note Date/Time of Note DATE: 11/20/16 TIME: 07:55 Consult Date/Type/Reason Admit Date/Time Nov 18, 2016 at 17:59 Initial Consult Date 11/19/16 Type of Consultation: CARDIOLOGY Ordering Provider: ANALY VALDIVIA Subjective CARDIOLOGY FOLLOW UP NOTE: S: D/W staff and DR Wright. pt s/p complicated PCI LM, LAD, Diagonal 9. with good results no more chest pain or pressure or palpitaions he denies any right groin pain to me now. he states he was able to walk no bleeding HD could not be done yesterday and is getting done today O: General: no acute distress HEENT: NC/AT. pupils are equal. round. NECK: NO JVD. no stridor. CV: RRR. systolic murmur; no gallop or rubs. PULM: no wheezing or rhonchi. GI: SOFT, NT, ND, no rebound or guarding Extremity: trace B/L LE edema. no clubbing. neuro: awake and alert, OX3. Psych: calm and pleasant rectal: deferred : normal male vascular: poor pulses distally. RIGHT Femoral no bleeding or hematoma or bruit. Objective Vital Signs Date Time Temp Pulse Resp B/P Pulse Ox O2 Delivery O2 Flow Rate FiO2 11/20/16 06:54 135/52 11/20/16 05:45 19 100 Nasal Cannula 11/20/16 05:00 78 11/20/16 04:00 98.4 2.0 Intake and Output 11/19/16 11/19/16 11/20/16 15:00 23:00 07:00 Intake Total 500 ml Balance 500 ml Results/Medications Result Diagram: 11/20/16 0430 11/20/16 0430 Results 24 hrs Laboratory Tests Test 11/19/16 08:33 11/19/16 09:14 11/19/16 09:15 11/19/16 14:34 Bedside Glucose 148 91 Creatine Kinase 302 H Creatine Kinase Index 5.5 Creatinine Kinase MB (Mass) 16.50 H Troponin I 10.500 *H Activated Partial Thromboplast Time 33.0 Sodium Level 142 Potassium Level 4.5 Chloride Level 100 Carbon Dioxide Level 28 Anion Gap 19 H Blood Urea Nitrogen 60 H Creatinine 11.08 #H Glucose Level 135 # Calcium Level 8.8 Total Bilirubin 0.0 L Direct Bilirubin 0.00 Indirect Bilirubin 0.0 Aspartate Amino Transf (AST/SGOT) 38 Alanine Aminotransferase (ALT/SGPT) 49 Alkaline Phosphatase 127 H Total Protein 7.0 Albumin 3.4 Globulin 3.60 H Albumin/Globulin Ratio 0.94 Triglycerides Level 419 H Cholesterol Level 118 LDL Cholesterol, Calculated 9 HDL Cholesterol 25 L Cholesterol/HDL Ratio 4.7 Thyroid Stimulating Hormone (TSH) 5.180 H Free Thyroxine Index 1.86 Thyroxine (T4) 4.4 L Triiodothyronine (T3) Uptake 42.2 H Test 11/19/16 17:22 11/19/16 21:02 11/20/16 01:44 11/20/16 04:30 Bedside Glucose 118 192 131 White Blood Count 10.4 Red Blood Count 3.12 L Hemoglobin 9.4 L Hematocrit 29.0 L Mean Corpuscular Volume 92.9 Mean Corpuscular Hemoglobin 30.1 Mean Corpuscular Hemoglobin Concent 32.4 Red Cell Distribution Width 14.1 Platelet Count 140 Mean Platelet Volume 10.6 H Neutrophils % 75.6 Lymphocytes % 10.2 L Monocytes % 9.9 Eosinophils % 3.3 Basophils % 0.6 Nucleated Red Blood Cells % 0.0 Neutrophils # 7.9 H Lymphocytes # 1.1 Monocytes # 1.0 H Eosinophils # 0.3 Basophils # 0.1 Nucleated Red Blood Cells # 0.0 Sodium Level 140 Potassium Level 4.8 Chloride Level 100 Carbon Dioxide Level 27 Anion Gap 18 H Blood Urea Nitrogen 67 H Creatinine 12.27 H Glucose Level 130 Calcium Level 8.5 Creatine Kinase 199 Creatine Kinase Index 4.7 Creatinine Kinase MB (Mass) 9.44 H Troponin I 7.630 *H Medications Current Medications Ondansetron HCl (Zofran Inj) 4 mg Q6H PRN IV NAUSEA AND/OR VOMITING; Start at 19:30 Morphine Sulfate (morphine) 2 mg Q4H PRN IV SEVERE PAIN LEVEL 7-10; Start 11/18 at 19:30 Famotidine (Pepcid Iv) 10 mg DAILY IV Last administered on 11/19/16 15:08; Admin Dose 10 MG; Start 11/19/16 at 09:00 Miscellaneous Medication (Bystolic) 5 mg DAILY PO Last administered on 19:30; Admin Dose 5 MG; Start 11/18/16 at 19:30 Isosorbide Dinitrate (Isordil) 20 mg TID PO Last administered on 11/19/16 22: 10; Admin Dose 20 MG; Start 11/18/16 at 21:00 Ticagrelor (Brilinta) 90 mg BID PO Last administered on 11/19/16 21:13; Admin Dose 90 MG; Start 11/18/16 at 21:00 Nitroglycerin (Nitroglycerin 2% Oint) 1 inch Q6H PRN TD chest pain; Start 11/18 at 19:30 Diagnostic Test (Pha) (Accu-Chek) 1 ea 02 XX ; Start 11/19/16 at 02:00 Insulin Glargine (Lantus) 68 unit DAILY@20 SC Last administered on 11/19/16 21 :10; Admin Dose 68 UNIT; Start 11/18/16 at 20:00 Miscellaneous Information 1 ea NOTE XX ; Start 11/18/16 at 20:00 Glucose (Glutose) 15 gm Q15M PRN PO DECREASED GLUCOSE; Start 11/18/16 at 20:00 Glucose (Glutose) 22.5 gm Q15M PRN PO DECREASED GLUCOSE; Start 11/18/16 at 20: 00 Dextrose (D50w Syringe) 25 ml Q15M PRN IV DECREASED GLUCOSE; Start 11/18/16 at 20:00 Dextrose (D50w Syringe) 50 ml Q15M PRN IV DECREASED GLUCOSE; Start 11/18/16 at 20:00 Glucagon (Glucagen) 1 mg Q15M PRN IM DECREASED GLUCOSE; Start 11/18/16 at 20:00 Glucose (Glutose) 15 gm Q15M PRN BUCCAL DECREASED GLUCOSE; Start 11/18/16 at 20 :00 Aspirin (Aspirin) 81 mg DAILY PO Last administered on 11/19/16 08:43; Admin Dose 81 MG; Start 11/19/16 at 09:00 Influenza Virus Vaccine (Fluzone) 0.5 ml ONCE ONCE IM* ; Start 11/21/16 at 09:00 ; Stop 11/21/16 at 09:01 Acetaminophen (Tylenol Tab) 650 mg Q4H PRN PO NON-CARDIAC PAIN LEVEL 1-3; Start 11/19/16 at 14:00 Oxycodone/ Acetaminophen (Percocet (5/ 325)) 1 tab Q4H PRN PO REPORTED NON- CARDIAC PAIN 4-7; Start 11/19/16 at 14:00 Morphine Sulfate (morphine) 1 mg Q1H PRN IV PAIN NOT RELIEVED BY OTHERS; Start 11/19/16 at 14:00 Isosorbide Mononitrate (Imdur) 60 mg DAILY PO ; Start 11/20/16 at 09:00 Pregabalin (Lyrica) 25 mg DAILY PO ; Start 11/20/16 at 09:00 Rosuvastatin Calcium (Crestor) 40 mg QHS PO Last administered on 11/19/16 21: 13; Admin Dose 40 MG; Start 11/19/16 at 21:00 Valsartan (Diovan) 160 mg DAILY PO ; Start 11/20/16 at 09:00 Heparin Sodium (Porcine) (Heparin (5000 Units/0.5 ml)) 5,000 unit Q8 SC Last administered on 11/20/16 06:49; Admin Dose 5,000 UNIT; Start 11/19/16 at 16:00 Labetalol HCl (Labetalol) 10 mg Q4H PRN IV SBP > 160; Start 11/19/16 at 21:30 Assessment/Plan Chief Complaint/Hosp Course 1. NSTEMI: s/p complex PCI LM/ LAD/ Diag 11.19.16 2. ESRD on HD 3. severe PAD, HX [employer] LE 4 HTN 5. Dyslipidemia 6. DM 7. CAD 8. HX CABG RECOMMENDATIONS: Cont ASA 81 ONLY cont brilinta 90 bid betablocker. NTG prn DM control with insulin as per IM STATIN HD today ok for dc from cardiac stand point. 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 Thank you for this referral. I will continue to follow along with you. CARMELINA MACK MD [facility] Problems: CARMELINA MACK MD Nov 20, 2016 07:59
[2016-11-20] MEDS ORDERED: PREGABALIN 25 MG CAP PO SCH (09:00)
[2016-11-20] MEDS ORDERED: VALSARTAN 160 MG TAB PO SCH (09:00)
[2016-11-20] MEDS ORDERED: ISOSORBIDE MONONITRATE(SR)60 MG TAB PO SCH (09:00)
[2016-11-20] MEDS: INSULIN ASPART [NOVOLOG] 3 ML PEN SC SCH (09:32)
--- NOTE | 2016-11-20 09:46 | PDOCDIS ---
Discharge Instructions CONDITION Patient Condition: Fair HOME CARE INSTRUCTIONS: Special Diet: NPO ACTIVITY: Activity Restrictions: Slowly Increase Activity FOLLOW UP/APPOINTMENTS Follow-up Plan 1. Follow up with your clerical dentist assistant as soon as possible, Dr. Ireland with [facility] 2. Take all medications as directed 3. Follow up with your gum machine filler as scheduled with dialysis. ANALY VALDIVIA Nov 20, 2016 09:46
[2016-11-20] MEDS: FAMOTIDINE 20 MG INJ IV SCH (09:47)
[2016-11-20] MEDS: ASPIRIN 81 MG TAB PO SCH (09:47)
[2016-11-20] MEDS: NEBIVOLOL 5 MG TAB PO SCH (09:48)
[2016-11-20] MEDS ORDERED: NEBI5TAB9 PO (09:48)
[2016-11-20] MEDS: TICAGRELOR 90 MG TABLET PO SCH (09:48)
[2016-11-20] MEDS ORDERED: ASPI81TA3 PO (09:48)
--- NOTE | 2016-11-20 14:13 | RADRPT ---
Vent Rate: 79 bpm RR Interval: 0 msec DE Interval: 182 msec QRS Duration: 90 msec QT Interval: 416 msec QTC Interval: 477 msec P-R-T [place]: 48 - 0 - 76 degrees Normal sinus rhythm Cannot rule out Anterior infarct , age undetermined Abnormal ECG Electronically Signed By: Shailesh Echevarria [id number]
--- NOTE | 2016-11-20 15:17 | DS ---
Date/Time of Note Date/Time of Note DATE: 11/20/16 TIME: 15:17 Discharge Summary Admission/Discharge Info Admit Date/Time Nov 18, 2016 at 17:59 Discharge Date/Time Nov 20, 2016 at 12:13 Patient Condition: Fair Hx of Present Illness Patient is a 66-year-old male with past medical history of coronary artery disease and end-stage renal disease on hemodialysis who presents to [facility] for chest pain during routine angiogram procedure at a vascular surgeon's office. Patient complains of 1 day onset of left-sided chest pain and states that it is still present here in the ED but has subsided somewhat. Patient follows up with a bpm developer at [facility] and with the flavoring maker on a regular basis and takes all his medications except for today. Patient also received dialysis this morning. Patient denies any nausea vomiting, headache or loss of vision or shortness of breath. Patient does state mild chest pain still. PMH: End-stage renal disease on hemodialysis, coronary artery disease status post CABG in 2011, diabetes mellitus, hypertension, peripheral arterial disease question PSH: CABG in 2011 Meds: Brilinta, isosorbide dinitrate, Crestor, valsartan, Lyrica, Lasix, insulin Hospital Course diagnosis Chest pain, non-ST elevation NM, resolved Non-ST elevation NM, left main/lad stenosis End-stage renal disease Elevated troponins Diabetes mellitus Electrolyte derangement, secondary to ESRD Elevated white count, very mild Anemia, likely secondary to CKD Patient is a 66-year-old male with a past medical history of coronary artery disease and end-stage renal disease on hemodialysis who also received CABG in 2011 who presents to [facility] for chest pain. Patient's troponins were elevated during this evaluation and cardiology took the patient to cardiac cath which resulted in stenting of the left main and proximal and mid LAD with 2 drug-eluting stents. Patient was observed overnight in the ICU and after receiving hemodialysis, patient was stable and discharged from the hospital and was instructed to continue current occasions as patient currently sees a bpm developer for his previous heart conditions and is already on all appropriate medications. Patient will need Brilinta at the ECF dose for minimum of 1 year and aspirin, 81 mg indefinitely. Home Meds Active Scripts Aspirin (Aspirin) 81 Mg Chew, 81 MG PO DAILY for 30 Days, #30 TAB Prov:ANALY VALDIVIA 11/20/16 Nebivolol* (Bystolic*) 5 Mg Tab, 5 MG PO DAILY for 30 Days, #30 TAB Prov:ANALY VALDIVIA 11/20/16 Reported Medications Rosuvastatin Calcium* (Crestor*) 40 Mg Tablet, 40 MG PO QHS, #30 TAB 11/18/16 Isosorbide Mononitrate* (Isosorbide Mononitrate*) 60 Mg Tab.er.24h, 60 MG PO DAILY, TAB 11/18/16 Pregabalin* (Lyrica*) 25 Mg Capsule, 25 MG PO DAILY, CAP 11/18/16 Valsartan* (Diovan*) 160 Mg Tablet, 160 MG PO DAILY, TAB 11/18/16 Insulin Aspart* (Novolog Insulin Pen*) 100 Unit/Ml Soln, 0 SC .SLIDING SCALE AC , EA 11/18/16 Insulin Glargine,Hum.rec.anlog (Toujeo Solostar) 300 Unit/1 Ml Insuln.pen, 85 UNIT SQ QPM 11/18/16 Furosemide* (Furosemide*) 40 Mg Tablet, 40 MG PO BID, TAB 11/18/16 Mometasone Furoate* (Asmanex*) 110 Mcg/Inh - 7 Act Aer.pow.ba, 1 PUFF INHALATION QHS, #1 INHALER 11/18/16 Ticagrelor* (Brilinta*) 90 Mg Tablet, 90 MG PO Q12, TAB 11/18/16 Follow-up Plan 1. Follow up with your bpm developer as soon as possible, Dr. Ireland with [facility] 2. Take all medications as directed 3. Follow up with your flavoring maker as scheduled with dialysis. Primary Care Provider Not On Staff Doctor Time spent on discharge: > 30 minutes Pending Labs Laboratory Tests Test 11/19/16 17:22 11/19/16 21:02 11/20/16 01:44 11/20/16 04:30 Bedside Glucose 118mg/dL (70-220) 192mg/dL (70-220) 131mg/dL (70-220) White Blood Count 10.410^3/ul (4.8-10.8) Red Blood Count 3.1210^6/ul (4.70-6.10) Hemoglobin 9.4g/dl (14.0-18.0) Hematocrit 29.0% (42.0-52.0) Mean Corpuscular Volume 92.9fl (82.0-101.0) Mean Corpuscular Hemoglobin 30.1pg (29.0-33.0) Mean Corpuscular Hemoglobin Concent 32.4g/dl (32.0-37.0) Red Cell Distribution Width 14.1% (11.5-14.5) Platelet Count 10631^3/UL (140-415) Mean Platelet Volume 10.6fl (7.4-10.4) Neutrophils % 75.6% (39.0-77.0) Lymphocytes % 10.2% (15.0-51.0) Monocytes % 9.9% (0.0-11.0) Eosinophils % 3.3% (0.0-7.0) Basophils % 0.6% (0.0-2.0) Nucleated Red Blood Cells % 0.0/100WBC (0.0-0.0) Neutrophils # 7.910^3/ul (1.6-7.5) Lymphocytes # 1.110^3/ul (0.8-2.9) Monocytes # 1.010^3/ul (0.3-0.9) Eosinophils # 0.310^3/ul (0.0-0.5) Basophils # 0.110^3/ul (0.0-0.1) Nucleated Red Blood Cells # 0.010^3/ul (0.0-0.0) Sodium Level 140mmol/L (135-144) Potassium Level 4.8mmol/L (3.5-5.1) Chloride Level 100mmol/L (97-110) Carbon Dioxide Level 27mmol/L (21-31) Anion Gap 18 (8-16) Blood Urea Nitrogen 67mg/dl (7-20) Creatinine 12.27mg/dl (0.61-1.24) Glucose Level 130mg/dl (70-220) Calcium Level 8.5mg/dl (8.4-10.2) Creatine Kinase 199IU/L (23-200) Creatine Kinase Index 4.7 Creatinine Kinase MB (Mass) 9.44ng/ml (0.0-2.4) Troponin I 7.630ng/ml (0.00-0.12) Test 11/20/16 09:29 Bedside Glucose 152mg/dL (70-220) ANALY VALDIVIA Nov 20, 2016 15:17
[2016-11-21] MEDS ORDERED: INFLUENZA VIRUS VACCINE 0.5 ML (DISPENSING) IM* ONE (09:00)
[2016-11-21] MEDS ORDERED: FAMOTIDINE 20 MG TAB PO SCH (09:00)
== END 2016-11-20 12:13 | disposition home or self-care (01) | DRG 246 ==
LOC: E/R 14:03 → MS4 17:59 → ICU 11-19 12:46
PROVIDERS: ADMIT Internal Medicine; ATTEND Internal Medicine
PROC: 027035Z Dilation of Coronary Artery, One Artery with Two Drug-eluting Intraluminal Devices, Percutaneous Approach (ICD-10-PCS; principal; 2016-11-19 10:00)
PROC: 4A023N7 Measurement of Cardiac Sampling and Pressure, Left Heart, Percutaneous Approach (ICD-10-PCS; 2016-11-19 10:00)
PROC: B211YZZ Fluoroscopy of Multiple Coronary Arteries using Other Contrast (ICD-10-PCS; 2016-11-19 10:00)
DX: I21.4 Non-ST elevation (NSTEMI) myocardial infarction (principal); N18.6 End stage renal disease; I12.0 Hypertensive chronic kidney disease with stage 5 chronic kidney disease or end stage renal disease; E11.22 Type 2 diabetes mellitus with diabetic chronic kidney disease; D63.1 Anemia in chronic kidney disease; I25.10 Atherosclerotic heart disease of native coronary artery without angina pectoris; Z95.1 Presence of aortocoronary bypass graft; Z99.2 Dependence on renal dialysis; Z79.4 Long term (current) use of insulin
CPT/HCPCS: 36415; 71010; 80048; 80053; 80061; 82550; 82553; 82962; 83735; 84100; 84436; 84443; 84479; 84484; 85025; 85610; 85730; 87081; 90935; 93005; 93306; 93458; 93931; 96372; 96374; 96375; C1725; C1874; C1887; C1894; C9600; J1644; J1815; J2250; J3010; J7030; Q9967